=== PATIENT | male | born 1990 | race Caucasian/White ===

== ENCOUNTER → 2022-08-05 11:59 | Outpatient (CLI) | payer OTHER, SELFPAY ==
[2022-08-05 13:29] LABS: Add Manual Diff / Slide Review NO; Basophils Absolute Auto 0 /uL (0-100); Basophils Percent Auto 0.8 % (0-2); Eosinophils Absolute Auto 200 /uL (0-450); Eosinophils Percent Auto 3.4 % (2-4); Hemoglobin 15.5 g/dL (13.5-17.5); Lymphocytes Absolute Auto 1200 /uL (1100-4500); Lymphocytes Percent Auto 25.8 % (25-40); Mean Corpuscular HGB Conc 34.4 % (30-36); Mean Corpuscular Hemoglobin 30.2 PG (26-34); Mean Corpuscular Volume 87.9 fL (80-100); Monocytes Absolute Auto 400 /uL (0-900); Monocytes Percent Auto 7.4 % (3-14); Neutrophils Absolute Auto 3000 /uL (1500-7000); Neutrophils Percent Auto 62.6 % (50-75); Platelet Count 269 X10^3/uL (150-400); Red Blood Cell Count 5.13 X10^6/uL (4.5-5.9); Red Cell Distribution Width 13.1 % (11.6-14.8); White Blood Cell Count 4.8 X10^3/uL (4.5-11.0)
[2022-08-05 13:58] LABS: BUN Creatinine Ratio 15.1 (6-22); Blood Urea Nitrogen 14 mg/dL (9-20); Carbon Dioxide 25 mmol/L (22-32); Chloride 102 mmol/L (98-107); Cholesterol 200 mg/dL (140-199); Estimated Glomerular Filt Rate > 60 mL/min (>60); Glucose 117 mg/dL (70-100); HDL Cholesterol 37 mg/dL (40-60); HEMOLYSIS < 15 (0-50); LDL Cholesterol Calculated 139 mg/dL (<100); Magnesium 1.9 mg/dL (1.6-2.3); Sodium 141 mmol/L (137-145); Triglycerides 119 mg/dL (35-150)
[2022-08-05 14:28] LABS: TSH w/ Reflex to FT4 1.57 uIU/mL (0.47-4.68)
== END ==
PROVIDERS: Referring Provider Internal Medicine Cardiovascular Disease; Visit Provider Internal Medicine Cardiovascular Disease
DX: I49.1 Atrial premature depolarization (principal); Z00.00 Encounter for general adult medical examination without abnormal findings
CPT/HCPCS: 36415; 80048; 80061; 83735; 84443; 85025

== ENCOUNTER → 2022-10-09 13:43 | Outpatient (CLI) | payer OTHER, SELFPAY ==
--- NOTE | 2022-10-09 13:45 | DI.ECHO.S_ITS ---
[facility] +---------+ : : [address] : [place] [address] : : : : [phone] : : : : Phone: [phone]---------+ Echocardiogram Report + + :Name: BIBI HARRY Study Date: 10/09/2022 Height: 74 in : :[facility] ReadingLocation: Weight: 254 lb : : Gender: Male BSA: 2.4 m2 : :: 1990 Age: 31 yrs BP: 130/86 mmHg: :Reason For Study: ATRIAL PREMATURE DEPLOARIZATION : :Ordering Physician: SELWYN, : :LEXY Performed By: Jeana Verde : :Referring: LEXY DELONG : + + Interpretation Summary 1) Normal left ventricular thickness, size, wall motion, and systolic function (EF 55-60%). 2) Normal right ventricular size and function. 3) No significant valvular abnormalities. 4) No prior Echo available for comparison. Procedure: A two-dimensional transthoracic echocardiogram with color flow and Doppler was performed. The study quality was technically adequate. There is no prior echocardiogram noted for this patient. The patient was in sinus rhythm with heart rates between 65-82 bpm during the exam. Left Ventricle: The left ventricle is normal in size and wall thickness. The ejection fraction is estimated to be 55-60%. Left ventricular systolic function appears normal without focal wall motion abnormalities. Diastolic parameters suggest a relaxation abnormality of the left ventricle, consistent with probable normal filling pressures. Right Ventricle: The right ventricle is normal in size and function. Atria: The left atrial size is normal. Right atrial size is normal. There is no Doppler evidence for an interatrial shunt. Mitral Valve: The mitral valve is normal in structure and function. There is trace mitral regurgitation. Aortic Valve: The aortic valve is trileaflet. The aortic valve opens well. There is no aortic valve stenosis. No aortic regurgitation is present. Tricuspid Valve: The tricuspid valve is normal in structure and function. There is trace tricuspid regurgitation. Pulmonary artery pressures cannot be estimated because of the lack of a measurable TR jet velocity. Pulmonic Valve: The pulmonic valve leaflets are thin and pliable; valve motion is normal. There is no pulmonic valvular regurgitation. Great Vessels: The aortic root is normal size. The dimensions of the ascending aorta are normal. The IVC is of normal diameter and collapses greater than 50% with a sniff. This suggests a low right atrial pressure of 3 mm Hg. Pericardium/ Pleura There is no pericardial effusion. There is no pleural effusion. MMode/2D Measurements & Calculations LVIDd: 5.0 cm LVOT diam: 2.2 cm LVIDs: 3.4 cm Ao root diam: 3.6 cm FS: 32.2 % asc Aorta Diam: 3.2 cm EPSS: 0.47 cm Ao Arch Diam (Prox Trans): 3.3 cm IVSd: 0.85 cm LVPWd: 0.79 cm LV negrete. diameter/BSA (cm/m^2): 2.1 LV sys. diameter/BSA (cm/m^2): 1.4 LA A2 area: 19.7 cm2 RA long axis: 4.4 cm LA A4 area: 19.0 cm2 RA area: 12.6 cm2 LA length (vol): 5.2 cm RA vol: 30.9 ml LA vol: 61.7 ml RA : 12.8 ml/m2 LA vol index: 25.7 ml/m2 IVC diam: 2.0 cm RVD1 (basal): 3.9 cm RVD2 (mid): 3.7 cm TAPSE: 1.8 cm Doppler Measurements & Calculations Ao V2 max: 119.8 cm/sec MV E max chato: 51.3 cm/sec Ao V2 mean: 82.9 cm/sec MV A max chato: 40.9 cm/sec Ao max P.7 mmHg MV E/A: 1.3 Ao mean P.1 mmHg Med Peak E' Chato: 9.6 cm/sec Ao V2 VTI: 22.8 cm E/E' med: 5.3 Lat Peak E' Chato: 14.9 cm/sec E/E' lat: 3.4 E/e' average: 4.4 MV dec time: 0.18 sec TR max chato: 184.2 cm/sec TR max P.6 mmHg PA V2 max: 90.3 cm/sec PA V2 mean: 64.7 cm/sec PA mean P.9 mmHg PA pr(Accel): 34.5 mmHg Reading Physician:10:01 AM
--- NOTE | 2022-10-09 13:48 | DI.NM.S_ITS ---
PROCEDURE: NM EXERCISE TREADMILL NON NUC COMPARISON: None. INDICATIONS: Atrial premature depolarization FINDINGS: the patient exercised for 10 minutes and 4 seconds reaching 94% of maximum predicted heart rate. 10.9 METs, LINA +26%. Appropriate BP response to exercise (resting BP 110/82mmHg, max BP 158/70mmHg). No chest pain during the study. No ST changes and no ectopy during the study. IMPRESSION: Low risk, normal treadmill ECG only stress test with mildly reduced exercise capacity (10.9METs, LINA +26%). No ectopy during the study. Dictated by: Jeanne Delong MD on 10/10/2022 at 13:59 Approved by: Jeanne Delong MD on 10/10/2022 at 14:00
== END ==
PROVIDERS: Referring Provider Internal Medicine Cardiovascular Disease; Visit Provider Internal Medicine Cardiovascular Disease
DX: I49.1 Atrial premature depolarization (principal); R00.2 Palpitations
CPT/HCPCS: 93017; 93306